=== PATIENT | male | born 1960 | race Caucasian/White ===

== ENCOUNTER 2020-05-22 01:19 | Outpatient (CLI) | payer BC, SELFPAY ==
[2020-05-22 20:51] LABS: SARS-CoV-2 RNA PCR Negative
== END 2020-05-22 01:20 | disposition home or self-care (01) ==
LOC: ANHCOVIDDT 01:20
PROVIDERS: PCP Family Medicine; Visit Provider Internal Medicine Gastroenterology
DX: Z01.812 Encounter for preprocedural laboratory examination (principal); Z20.828 Contact with and (suspected) exposure to other viral communicable diseases
CPT/HCPCS: 87635; C9803; U0003

== ENCOUNTER 2020-05-24 01:21 | Day surgery (SDC) | payer BC, SELFPAY ==
[2020-05-21 08:28] VITALS: BMI 24.1
[2020-05-24 08:01] VITALS: BP 148/86; PULSE 83; RESP 16; TEMP 36.6; O2SAT 99; BMI 23.8
--- NOTE | 2020-05-24 08:05 | P.PNAN_ITS ---
Anes - Initial Pre Proc Eval Procedure: Operation Date: 05/24/20 09:00 Proposed Procedures p Screening Colonoscopy - Emmanuel Smart DO Date/Time: 05/24/20 08:05 Surgeon: Emmanuel Smart DO Pre Op Diagnosis: Neoplasm Screening Patient Data Age: 59 Gender: M Height: 1.7 m Weight: 70 kg Allergies Allergy/AdvReac Type Severity Reaction Status Date / Time No Known Allergies Allergy Verified 05/21/20 08:27 Home Medications Medication Instructions Recorded Confirmed Type No Home Medications 04/17/20 05/24/20 History Patient hx anesthesia problems: none Family hx anesthesia problems: none [facility] Past Medical History Medical History (Updated 04/17/20 @ 09:09 by Marbella Preciado) Varicocele Surgical History Surgical History H/O hernia repair Epigastric hernia repair with suture closure at [facility] in [place]. 05/21/2017 S/P excision of varicocele Family History Family History Sibling Patient's brother is in good health Father Acute myocardial infarction, Onset Age: 68 Patient's father is , Onset Age: 68 Family history of cardiovascular disease, Onset Age: 68 Family history of coronary artery disease, Onset Age: 68 Mother Patient's mother is in good health Family history of kidney disease Other Malignant neoplasm of prostate Social History Social History Smoking status: Never smoker Second hand tobacco smoke exposure: No Alcohol intake: never Substance use: unknown Substance use type: does not use 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 [employer] Gender identity (if verbalized by the patient): Female Spiritual care concerns: No Anes - Eval Final PreProcedure Day of Procedure 05/24/20 08:05 Patient weight: normal Heart: regular rate and rhythm Lungs: clear to auscultation and normal air movement Airway: Mallampati scale class II Neurological: alert and oriented Last oral intake: >/= 8 hours ASA classification: I Emergent: no Anesthetic plan: proceed Anesthesia type and monitoring: general GIVS Informed Consent: The patient's anesthetic plan and its attendant risks and benefits were discussed with the patient/family/POA. Questions were solicited and answers provided to the satisfaction of the patient/family/POA.
[2020-05-24] MEDS: LACTATED RINGERS 1,000 ML 150 ML IV CONT (08:18)
--- NOTE | 2020-05-24 08:53 | PM.IMHP ---
H&P: HPI History of Present Illness Date/Time: 05/24/20 08:53 Chief complaint: Neoplasm Screening Narrative: Reason for visit is colonoscopy. This very pleasant gentleman seen in consultation request of the primary physician. Impression: Screening colonoscopy. Recommendation: Colonoscopy. History: Very pleasant gentleman is negative GI review systems. He is here for screening colonoscopy. Physical examination: General: very pleasant patient in no acute distress. HEENT: Head was normocephalic sclerae is clear mouth without masses neck was supple. Heart: Rate rhythm regular without S3 or S4. Lungs: CTA. Abdomen: Soft with no guarding or rigidity. Bowel sounds were active. Neurologic: Cranial nerves 2 through 12 intact. No focal defects. No clonus. Musculoskeletal system: Revealed no joint tenderness or swelling no muscle atrophy. Extremities: Reveal no significant edema. Skin: Warm and dry with normal turgor. Mental status: intact. Patient is alert and oriented. Review of Systems Review of Systems: All systems reviewed & are unremarkable except as noted in HPI and below PMFSH Past Medical History Medical History (Updated 04/17/20 @ 09:09 by Marbella Preciado) Varicocele Surgical History Surgical History H/O hernia repair Epigastric hernia repair with suture closure at [facility] in [place]. 05/21/2017 S/P excision of varicocele Family History Family History Sibling Patient's brother is in good health Father Acute myocardial infarction, Onset Age: 68 Patient's father is , Onset Age: 68 Family history of cardiovascular disease, Onset Age: 68 Family history of coronary artery disease, Onset Age: 68 Mother Patient's mother is in good health Family history of kidney disease Other Malignant neoplasm of prostate Social History Social History Smoking status: Never smoker Second hand tobacco smoke exposure: No Alcohol intake: never Substance use: unknown Substance use type: does not use 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
[2020-05-24 09:30] VITALS: BP 103/65; PULSE 78; RESP 27; O2SAT 97
[2020-05-24 09:40] VITALS: BP 101/31; PULSE 69; RESP 27; O2SAT 97
[2020-05-24 09:51] VITALS: BP 101/61; PULSE 66; RESP 21; O2SAT 97
[2020-05-24 10:01] VITALS: BP 109/73; PULSE 67; RESP 16; O2SAT 99
[2020-05-24 10:11] VITALS: BP 100/70; PULSE 70; RESP 16; O2SAT 99
== END 2020-05-24 10:20 | disposition home or self-care (01) ==
PROVIDERS: PCP Family Medicine; Visit Provider Internal Medicine Gastroenterology
PROC: 0DJD8ZZ Inspection of Lower Intestinal Tract, Via Natural or Artificial Opening Endoscopic (ICD-10-PCS; CPT 45378; principal; 2020-05-24 09:00)
DX: Z12.11 Encounter for screening for malignant neoplasm of colon (principal); D12.8 Benign neoplasm of rectum; K64.8 Other hemorrhoids
CPT/HCPCS: 45385; 88305; J2704; J7120

== ENCOUNTER 2020-05-30 14:21 | Outpatient (CLI) | payer BC, SELFPAY | END 2020-05-30 14:22 | disposition home or self-care (01) | PROVIDERS: PCP Family Medicine; Visit Provider Surgery | DX: K43.9 Ventral hernia without obstruction or gangrene (principal); Z01.818 Encounter for other preprocedural examination | CPT/HCPCS: 36415; 86850; 86900; 86901 ==

== ENCOUNTER 2020-06-04 02:17 | Outpatient (CLI) | payer BC, SELFPAY ==
[2020-06-04 21:22] LABS: SARS-CoV-2 RNA PCR Negative
== END 2020-06-04 02:18 | disposition home or self-care (01) ==
LOC: ANHCOVIDDT 02:21
PROVIDERS: PCP Family Medicine; Visit Provider Surgery
DX: Z01.818 Encounter for other preprocedural examination (principal); Z20.828 Contact with and (suspected) exposure to other viral communicable diseases
CPT/HCPCS: 87635; C9803; U0003

== ENCOUNTER 2020-06-07 01:11 | Day surgery (SDC) | payer BC, SELFPAY ==
[2020-05-28 14:39] VITALS: BMI 24.3
[2020-06-07] VITALS (8 sets, daily range): BP systolic 121–137; BP diastolic 70–84; PULSE 57–72; RESP 12–20; TEMP 36.6–37; O2SAT 97–100; BMI 24.1
--- NOTE | 2020-06-07 08:23 | P.PNAN_ITS ---
Anes - Initial Pre Proc Eval Procedure: Operation Date: 06/07/20 12:00 Proposed Procedures p Laparoscopic Recurrent Epigastric Hernia Repair - Johnson Ayala MD Date/Time: 06/07/20 08:23 Surgeon: Johnson Ayala MD Pre Op Diagnosis: Recurrent Ventral/Epigastric Hernia Patient Data Age: 59 Gender: M Height: 1.7 m Weight: 70.31 kg Allergies Allergy/AdvReac Type Severity Reaction Status Date / Time No Known Allergies Allergy Verified 06/07/20 10:11 Home Medications Medication Instructions Recorded Confirmed Type multivitamin 1 tablet PO DAILY 05/28/20 06/07/20 History Patient hx anesthesia problems: none Family hx anesthesia problems: none [facility] Past Medical History Medical History (Updated 06/07/20 @ 10:32 by Venkatesh Wellington MD) ELIDIA (obstructive sleep apnea) Rectal polyp Varicocele Ventral hernia without obstruction or gangrene Surgical History Surgical History H/O hernia repair Epigastric hernia repair with suture closure at [facility] in [place]. 05/21/2017 S/P excision of varicocele Family History Family History Sibling Patient's brother is in good health Father Acute myocardial infarction, Onset Age: 68 Patient's father is , Onset Age: 68 Family history of cardiovascular disease, Onset Age: 68 Family history of coronary artery disease, Onset Age: 68 Mother Patient's mother is in good health Family history of kidney disease Other Malignant neoplasm of prostate Social History Social History Smoking status: Never smoker Second hand tobacco smoke exposure: No Alcohol intake: never Substance use: unknown Substance use type: does not use 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 Gender identity (if verbalized by the patient): Female Spiritual care concerns: No Anes - Eval Final PreProcedure Day of Procedure 06/07/20 08:23 Patient weight: normal Heart: regular rate and rhythm Lungs: clear to auscultation and normal air movement Airway: Mallampati scale class II Neurological: alert and oriented Last oral intake: >/= 8 hours ASA classification: II Emergent: no Anesthetic plan: proceed Anesthesia type and monitoring: general ETT Informed Consent: The patient's anesthetic plan and its attendant risks and benefits were discussed with the patient/family/POA. Questions were solicited and answers provided to the satisfaction of the patient/family/POA.
[2020-06-07] MEDS: ACETAMINOPHEN 500 MG TABLET 1000 MG PO (10:30)
[2020-06-07] MEDS: KETOROLAC 15 MG/ML VIAL (*BKC) IV PUSH (10:31)
[2020-06-07] MEDS: LACTATED RINGERS 1,000 ML 30 ML IV CONT (10:38)
--- NOTE | 2020-06-07 11:06 | PM.HPGS ---
History of Present Illness History of Present Illness Consent: Risks, benefits, and alternatives a laparoscopic ventral incisional hernia repair have been discussed and questions answered. Patient agrees to proceed with procedure. Chief complaint: Recurrent Ventral/Epigastric Hernia Narrative: Bhavik Sharma is a 59 year old male presents with a abdominal bulge that he had repaired about 3 years with an open procedure. He had a epigastric hernia repair (suture closure) in 05/21/2017 at [facility]. He reports this started to bulge again about 3 months after surgery. He has never had to reduce this. He reports this bulge is larger than the bulge was prior to the first surgery. He denies bowel obstructions or urinary obstructions. He had a colonoscopy at the age of 49. and since his recent office visit with me more than a month ago he had a follow-up colonoscopy revealing only 1 polyp removed that was benign with Dr. Smart. He did not have any polyps on his first one. 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 He is overall healthy. He is now seen in surgical consultation at the request of Dr. Rivers. Review of Systems Constitutional: Constitutional: Reports no additional constitutional complaints, Reports fatigue and Denies malaise Eyes: Eyes: Denies change in vision and Denies loss of vision ENT: Reports Normal hearing present, Denies change in voice, Denies dizziness, Denies hoarseness and Denies sore throat Cardiovascular: Cardiovascular: Denies chest pain, Denies leg edema and Denies dyspnea Respiratory: Respiratory: Denies cough, Denies dyspnea and Denies wheezing Gastrointestinal: Gastrointestinal: Denies hematochezia, Denies change in bowel habits and Denies heartburn Genitourinary: Genitourinary: Denies urinary frequency and Denies urinary incontinence Neurologic: Reports Normal hearing present, Denies confusion, Denies dizziness, Denies loss of vision, Denies memory loss and Denies seizure-like activity Psychiatric: Psychiatric: Denies confusion, Denies depression and Denies memory loss Endocrine: Endocrine: Denies cold intolerance and Reports fatigue Hematologic/Lymphatic: Hematologic/Lymphatic: Denies easy bleeding and Denies easy bruising Allergic/Immunologic: Allergic/Immunologic: Denies wheezing PMFSH Past Medical History Medical History ELIDIA (obstructive sleep apnea) Rectal polyp Varicocele Ventral hernia without obstruction or gangrene Surgical History Surgical History H/O hernia repair Epigastric hernia repair with suture closure at [facility] in [place]. 05/21/2017 S/P excision of varicocele Family History Family History Sibling Patient's brother is in good health Father Acute myocardial infarction, Onset Age: 68 Patient's father is , Onset Age: 68 Family history of cardiovascular disease, Onset Age: 68 Family history of coronary artery disease, Onset Age: 68 Mother Patient's mother is in good health Family history of kidney disease Other Malignant neoplasm of prostate Social History Social History Smoking status: Never smoker Second hand tobacco smoke exposure: No Alcohol intake: never Substance use: unknown Substance use type: does not use 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 Gender identity (if verbalized by the patient): Female Spiritual care concerns: No Meds Home Medications and Allergies Home Medications Medication Instructions Recorded Confirmed Type multivitamin 1 tablet PO DAILY 05/28/20 06/07/20 History Allergies Allergy/AdvReac Type Severity Reaction Status Date / Time No Known Allergies Allergy Verified 06/07/20 10:11 Vital Signs Vital Signs - 24 hr 06/07/20 10:39
--- NOTE | 2020-06-07 12:04 | WPDHPUPDATE1 ---
History and Physical Update Update Date/Time: 06/07/20 12:04 History and Physical has been reviewed, including an updated exam of the patient. There are NO changes in the patient's condition. Risks, benefits, and alternatives have been discussed and questions answered. Patient agrees to proceed with procedure.
[2020-06-07] MEDS: ceFAZolin 2 GM/D5W 50 ML 2 GM/50 ML BAG IVPB (12:17)
--- NOTE | 2020-06-07 13:31 | PM.PROC ---
Procedure Note - Detailed Date of procedure: 06/07/20 Pre-op diagnosis: Recurrent Ventral/Epigastric Hernia Post-op diagnosis: same Procedure performed: Laparoscopic recurrent epigastric hernia repair with mesh Description of procedure: DESCRIPTION OF PROCEDURE: The patient was placed in the supine position on the operative table and after induction of adequate general endotracheal anesthesia by Christofer Anesthesia, the entire abdomen was prepped and draped in usual sterile fashion and the head placed slightly up. An Ioban drape was used to prevent contact of the mesh with the skin during this clean case. Following this, local anesthetic was placed and a spot selected about two fingerbreadths below the costal margin on the left and a small incision made after instilling local anesthetic using 0.25% Marcaine with epinephrine. Following this, a Veress needle technique using the water drop test was completed. Using 2 towel clips on the skin, I carefully elevated the skin and then passed the Veress needle into the abdomen and we could see that the saline droped through the Veress needle easily. CO2 gas was connected and the abdomen was insufflated to 14 mm Hg pressure after starting out at around 9. Following this, 0 degree 5 mm laparoscope was placed inside a 5 mm trocar, which was carefully twisted into the abdomen without difficulty, seeing an open pneumoperitoneum as we entered. Thus, the trocar was removed, the sleeve confirmed to be nicely within the abdomen, and we carefully inspected the abdomen. Careful inspection of the abdomen revealed no inguinal hernias. A small defect in the fascia under and slightly above the old scar in the epigastrium that was actually difficult to see initially because there was an omental adhesion stuck to its underside., but after placing a 12 mm port in the left lower quadrant under direct vision with the laparoscope, we could see up into an approximately 11 mm defect that had been measured then with an instrument with a known cm marker. There was no incarceration of any omentum or any other adhesions to the underside of the old scar. There was some preperitoneal fat from the going up into the area which might inhibit the tacks that I was planning to place through the mesh; therefore, this and approximately 4 cm of the falciform ligament cephalad to the area of the hernia was taken down with Bovie cautery. I used both a [place] to fulgurate several vessels in the falciform and a scissors to take this down. We had a little bleeding from this, and lost about 5 mL of blood. This was nicely cauterized and then moved out of the way. This was pre-peritoneal fat and it was removed from the abdomen and passed off the field but not sent as specimen. Following this, we carefully planned by measuring the defect. Our mesh, a circular 11 cm piece of Venta-lite piece of mesh was chosen, so that we would have 4.5 cm of overlap in all directions over the epigastric defect. Following this, the ventra-lite balloon hernia system mesh was rolled and this was inserted through the 12 mm port after rolling it to protect the absorbable covering on the downside of the mesh. An O Vicryl suture was placed through the blue system plastic loop that is used to extract the tubing for the balloon positioning system such that I could grab this and pull it up through the epigastric area with the suture Passer. I used the suture passer after making a small opening with an 11 blade knife after placing local anesthetic directly in the cente of the palpable fascial defect in the epigastric area. The suture passer was used to grasp this centering Vicryl stitch on the piece of mesh, and this was pulled up, centering it. Then and insofar inflated the balloon system which brought the mesh up against the anterior abdominal wall centering it nicely with the center of the 11 centimeter piece of mesh over the center of the epigatric area. Two rows of tacks using the
[2020-06-07] MEDS: fentaNYL CITRATE INJ (*CRX) 100 MCG/2 ML VIAL 25 MCG IV PUSH ×4 (14:33→14:54)
[2020-06-07] MEDS: oxyCODONE HCL (*CRX) 5 MG TAB IR PO (14:45)
== END 2020-06-07 15:40 | disposition home or self-care (01) ==
PROVIDERS: PCP Family Medicine; Visit Provider Surgery
PROC: (CPT 49656; principal; 2020-06-07 12:00)
DX: K43.2 Incisional hernia without obstruction or gangrene (principal); G47.33 Obstructive sleep apnea (adult) (pediatric)
CPT/HCPCS: 49656; A9270; C1781; J0690; J1100; J1885; J2250; J2370; J2405; J2704; J3010; J7030; J7120

== ENCOUNTER 2020-07-19 12:17 | Emergency (ER) | payer BC, SELFPAY ==
[2020-07-19] VITALS (13 sets, daily range): BP systolic 118–134; BP diastolic 77–87; PULSE 88–102; RESP 17–24; TEMP 36.4; O2SAT 93–97
--- NOTE | ~2020-07-19 | CT_ITS ---
EXAMINATION: CT brain wo con DATE: 07/19/2020 13:09 INDICATION: Seizure TECHNIQUE: Computed tomography (CT) of the head was performed without intravenous contrast. Sagittal and coronal reconstructions were performed. The mA was adjusted according to patient size. Iterative reconstruction technique was employed. The dose-length product was 605.33 mGy-cm. COMPARISON: None FINDINGS: No acute intracranial hemorrhage, acute infarction or abnormal extra axial fluid collection. Ventricl es are normal and symmetric. No mass/mass effect. Mild mucosal thickening the bilateral ethmoid sinus es. The orbits and mastoid air cells are normal. IMPRESSION: 1. Normal aging brain. No acute intracranial process. Reviewed, dictated and finalized at location A. SCAPING SUPERVISOR
--- NOTE | 2020-07-19 12:21 | ECG_ITS ---
Measurements Intervals [place] Rate: 92 P: 76 ME: 140 QRS: 58 QRSD: 96 T: 61 QT: 309 QTc: 384 Interpretive Statements SINUS RHYTHM BORDERLINE ST-T WAVE ABNORMALITY- INF/LAT LEADS BORDERLINE ECG Electronically Signed On 07-19-2020 16:34:44 PAINT MIXER HAND by Milind Vieira D.O.
[2020-07-19 12:29] LABS: Basophils Absolute Auto 0.1 K/mm3 (0.0-0.1); Basophils Percent Auto 0.8 % (0.2-1.2); Eosinophils Absolute Auto 0.2 K/mm3 (0-0.3); Hematocrit 45.8 % (42.0-52.0); Hemoglobin 16.2 g/dL (14.0-18.0); Immature Granulocyte Absolute 0.03 K/mm3 (0.00-0.031); Immature Granulocyte Percent A 0.4 % (0-0.5); Lymphocytes Percent Auto 27.5 % (18.3-44.2); Mean Corpuscular HGB Conc 35.4 g/dl (32-36); Mean Corpuscular Hemoglobin 33.1 pg (26-34); Mean Corpuscular Volume 93.5 fl (80-100); Mean Platelet Volume 10.2 fl (7.4-10.4); Monocytes Absolute Auto 0.8 K/mm3 (0.1-0.6); Monocytes Percent Auto 9.5 % (2.6-8.5); Neutrophils Absolute Auto 4.7 K/mm3 (1.3-6.7); Neutrophils Percent Auto 58.8 % (45.5-73.1); Platelet Count Result 223 k/mm3 (150-375); Red Cell Distribution Width 12.8 % (11.5-14.5)
[2020-07-19 12:30] LABS: Glucose Point of Care 106 (65-105)
[2020-07-19 12:41] LABS: Anion Gap 12 mmol/L (8-16); Blood Urea Nitrogen 28 mg/dL (9-20); Calcium 9.4 mg/dL (8.4-10.2); Carbon Dioxide 26 mmol/L (22-30); Chloride 101 mmol/L (98-107); Estimated CRCL calculation 59 ml/min; Estimated Glomerular Filt Rate > 60; Glucose 99 mg/dL (75-110); Potassium 3.8 mmol/L (3.4-5.0); Sodium 139 mmol/L (137-145)
--- NOTE | 2020-07-19 12:46 | PC.NURSE ---
called lab, harshad, added on EtOH 1368
--- NOTE | 2020-07-19 12:52 | ED.SEIZURE ---
HPI - Seizure General Chief Complaint: Seizure Stated Complaint: SEIZURE History of Present Illness HPI Narrative: Patient is a 59-year-old male who presents ER with seizure. heard him making sounds upstairs went to check on him and he was on the ground having a tonic-clonic seizure that was generalized. He then had blowing breath sounds afterwards and then was confused. He has since returned to his neurologic baseline. Patient reports history of seizures with last seizure 40 years ago. He has not been on medication for 40 years. Denies any change in routine or increased stress that may have provoked a seizure. Has no complaints at this time. Related Data Home Medications Medication Instructions Recorded Confirmed multivitamin 1 tablet PO DAILY 05/28/20 06/21/20 Allergies Allergy/AdvReac Type Severity Reaction Status Date / Time No Known Allergies Allergy Verified 06/21/20 09:30 Review of Systems Review of Systems: All systems reviewed & are unremarkable except as noted in HPI and below Constitutional: Constitutional: Denies chills, Denies fever(s) and Denies weakness ENT: Denies nasal congestion and Denies sore throat Respiratory: Respiratory: Denies cough and Denies dyspnea Gastrointestinal: Gastrointestinal: Denies nausea and Denies vomiting Neurologic: Denies syncope, Denies headache(s), Denies focal weakness and Denies numbness Comments: Seizure PMFSH Past Medical History Medical History (Updated 07/19/20 @ 14:36 by Nikolai Wilson MD) ELIDIA (obstructive sleep apnea) Rectal polyp Seizure Varicocele Ventral hernia without obstruction or gangrene Surgical History Surgical History H/O hernia repair Epigastric hernia repair with suture closure at [facility] in [place]. 05/21/2017 S/P excision of varicocele Family History Family History Sibling Patient's brother is in good health Father Acute myocardial infarction, Onset Age: 68 Patient's father is , Onset Age: 68 Family history of cardiovascular disease, Onset Age: 68 Family history of coronary artery disease, Onset Age: 68 Mother Patient's mother is in good health Family history of kidney disease Other Malignant neoplasm of prostate Social History Social History Smoking status: Never smoker Second hand tobacco smoke exposure: No Alcohol intake: never Substance use: unknown Substance use type: does not use 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 HEAD: Normocephalic, atraumatic. EYES: PERRLA and EOMI. ENT: Mucous membranes moist. No tongue laceration. CHEST: Clear to auscultation. No respiratory distress. HEART: Regular rate and rhythm. Normal peripheral pulses. ABDOMEN: Soft, nontender, nondistended, normal active bowel sounds. EXTREMITIES: Normal range of motion. No edema.. NEURO: No focal deficits. Alert and oriented x3. Course Course Emergency Course: Discussed case with Dr. Mckee. Will load with Keppra and start on 500mg bid. No driving, outpt EED, f/u in 1 month Vital Signs Vital signs: Vital Signs Temperature 97.5 F L 07/19/20 12:16 Pulse Rate 100 07/19/20 12:16 Respiratory Rate 17 07/19/20 12:16 Blood Pressure 134/79 07/19/20 12:16 Pulse Oximetry 97 07/19/20 12:16 Temperature 97.5 F L 07/19/20 12:16 Pulse Rate 93 07/19/20 13:45 Respiratory Rate 20 07/19/20 13:45 Blood Pressure 122/80 07/19/20 13:45 Pulse Oximetry 95 07/19/20 13:45 MDM - Seizure Lab Data Result diagrams: 07/19/20 12:24 07/19/20 12:24 Labs: Lab Resu
--- NOTE | 2020-07-19 13:25 | PC.NURSE ---
called lab about the EtOH (again) 1350
--- NOTE | 2020-07-19 13:36 | PC.NURSE ---
Pt attempting to void via urinal.
[2020-07-19 13:42] LABS: Ethanol < 10 mg/dL (<10)
[2020-07-19 13:58] LABS: Add Urine Microscopic? YES; Appearance Urine Clear (Clear); Bilirubin Urine Negative (Negative); Blood Urine Negative (Negative); Color Urine Yellow (Yellow); Glucose Urine UA Negative (Negative); Ketones Urine Negative (Negative); Leukocyte Esterase Ur Negative LEU/UL (Negative); Mucus Urine Rare /lpf; Nitrate Urine Negative (Negative); Protein Urine 1+ mg/dL (Negative); Specific Grav Ur 1.016 (1.001-1.035); Squamous Epithelial Cell Urine Rare /hpf (Few); Urobilinogen Urine Negative mg/dL (<2.0); WBC Urine 0-3 /hpf
[2020-07-19] MEDS: levETIRAcetam 1000MG/NACL100ML 1,000 MG/100 ML BAG 400 MG IVPB (13:58)
--- NOTE | 2020-07-19 13:58 | PC.NURSE ---
Lucas edouard. Explained need additional urine for testing. Pt given water po per ok Dr. Wilson.
[2020-07-19 15:03] LABS: Amphetamine Screen Urine Negative (Negative); Barbiturate Screen Urine Negative (Negative); Benzodiazepines Screen Urine Negative (Negative); Cannabinoid Screen Urine Negative (Negative); Cocaine Screen Urine Negative (Negative); Methadone Screen Urine Negative (Negative); Opiate Screen Urine Negative (Negative); Phencyclidine Screen Urine Negative (Negative)
== END 2020-07-19 15:15 | disposition home or self-care (01) ==
PROVIDERS: Emergency Provider Emergency Medicine; PCP Family Medicine
DX: R56.9 Unspecified convulsions (principal); G47.33 Obstructive sleep apnea (adult) (pediatric); Z87.19 Personal history of other diseases of the digestive system; R94.31 Abnormal electrocardiogram [ECG] [EKG]
CPT/HCPCS: 36415; 70450; 80048; 80307; 81001; 82948; 85025; 93005; 96365; 99284; J1953

== ENCOUNTER 2020-08-03 08:25 | Outpatient (CLI) | payer BC, SELFPAY ==
--- NOTE | 2020-08-06 12:29 | WPDNEUROLOGY ---
Neurology EEG Report General Information Date of Study: 08/03/20 TEST EEG DIAGNOSIS epilepsy CONDITION OF RECORDING awake drowsy and sleep EEG NUMBER [id number] CLINICAL HISTORY patient reported he has had a grand mal seizure about 2 weeks ago. He came to the emergency room and they started him on Keppra. He also reported that he has had 3 or more seizures when he was a teenager. EEG DESCRIPTION basic resting occipital frequency consists of well-organized low to medium voltage 8 to 9 hertz per 2nd alpha admixed with minimal amount of low-voltage 15 to 18 hertz per 2nd beta. during drowsiness low-voltage beta activity seen diffusely. Bilateral symmetrical sleep activity seen during brief periods of sleep. Hyperventilation not done. photic stimulation produced normal drive. Non paroxysmal. nonfocal. nonlateralizing. IMPRESSION normal eeg
== END 2020-08-03 08:26 | disposition home or self-care (01) ==
PROVIDERS: PCP Family Medicine; Visit Provider Emergency Medicine
DX: G40.909 Epilepsy, unspecified, not intractable, without status epilepticus (principal)
CPT/HCPCS: 95816

== ENCOUNTER → 2020-08-20 14:31 | Outpatient (CLI) | payer BC, SELFPAY ==
--- NOTE | ~2020-08-20 | MR_ITS ---
EXAMINATION: MR brain/brain stem wo con DATE: 08/20/2020 15:02 INDICATION: Seizure. TECHNIQUE: Magnetic resonance imaging (MRI) of the brain and brainstem was performed without intraven ous contrast. Sequences included sagittal and axial T1-weighted FSE, axial diffusion-weighted FS EPI, axial T2*-weighted GRE, axial T2-weighted FLAIR Propeller, and axial T2-weighted Propeller. Apparent diffusion coefficient (ADC) maps were created. COMPARISON: Head CT 07/19/2020 FINDINGS: There are scattered areas of nonspecific increased T2-weighted signal intensity in the cere bral white matter, which is within normal limits for the patient's age. There is no intracranial hemo rrhage, acute infarction, or abnormal intracranial mass lesion. The ventricles are normal in size. Th ere is mild mucosal thickening in the ethmoid sinuses. The orbits are normal. The mastoid air cells a re normal. IMPRESSION: 1. Normal aging brain. Reviewed, dictated and finalized at location A. SIT PROOF MACHINE OPERATOR IMPRESSION: 1. Normal aging brain.
--- NOTE | ~2020-08-20 | XR_ITS ---
EXAMINATION: XR shoulder RT min 2V DATE: 08/20/2020 15:12 INDICATION: Right shoulder pain. TECHNIQUE: 4 views of right shoulder were obtained. COMPARISON: None. FINDINGS: Bone alignment is normal. No fracture. There is a 6.0 cm sclerotic lesion in proximal right humerus. There is mild osteoarthritis of glenohumeral joint and acromioclavicular joint. IMPRESSION: 1. Sclerotic lesion in proximal right humerus. In the absence of known malignancy, this finding is li raúl an enchondroma or osteonecrosis. Reviewed, dictated and finalized at location A. EY CLEANER IMPRESSION: 1. Sclerotic lesion in proximal right humerus. In the absence of known malignan cy, this finding is likely an enchondroma or osteonecrosis.
== END ==
PROVIDERS: PCP Family Medicine; Visit Provider Psychiatry & Neurology Neurology
DX: R56.9 Unspecified convulsions (principal); M25.511 Pain in right shoulder
CPT/HCPCS: 70551; 73030

== ENCOUNTER → 2020-09-10 14:47 | Outpatient (CLI) | payer BC, SELFPAY ==
--- NOTE | ~2020-09-10 | MR_ITS ---
EXAMINATION: MR shoulder RT wo/w con DATE: 09/10/2020 15:47 INDICATION: Right shoulder pain and limited range of motion TECHNIQUE: Magnetic resonance imaging (MRI) of the right shoulder was performed . without and with 13 mL Multihance intravenous contrast. Sequences included axial, sagittal and coronal T1-weighted FSE a nd T2-weighted FS FSE, sagittal PD-weighted FSE, axial T1-weighted FS FSE and postcontrast axial, sag ittal and coronal T1-weighted FS FSE. COMPARISON: None. FINDINGS: Coracoacromial arch: The acromion undersurface is curved in morphology (type II). The coracoacromial ligament is normal. M ild acromioclavicular osteoarthritis. Rotator cuff: Mild supraspinatus and infraspinatus tendinopathy with partial-thickness bursal sided tear involving the supraspinatus and infraspinatus tendons. The torn portion of the tendon is medially retracted geeta roximately 3 cm from the footplate slightly medial to the level of the apex of the humeral head. The lateral, anterior and posterior tear margins are unable to be definitively located. The tear appears to involve up to 50% of the thickness of the tendon. The teres minor and subscapularis tendons are no rmal. There is muscular edema at the infraspinatus muscle belly without associated fatty atrophy. Biceps tendon, glenoid labrum and glenohumeral cartilage: Long head of the biceps tendon is normal. Glenoid labrum is normal. Glenohumeral cartilage is normal. Fluid: Physiologic amount of fluid in the glenohumeral joint and biceps tendon sheath. No loose osteochondra l bodies. Small amount of fluid in the subacromial/subdeltoid bursa consistent with mild bursitis. Bones: There is a large lesion in the proximal metaphyseal metadiaphyseal region of the right humerus with r ing and arc-like pattern of low signal intensity sclerosis is seen on prior radiographs with lobular regions of increased T2 and PD signal with mild peripheral enhancement with cluster of grape like geeta earance characteristic of chondroid lesions. The lesion measures 5.6 cm proximal to distal and fills the medullary space measuring up to 3.2 x 3.0 cm. No evident endosteal scalloping or extraosseous ext ension to suggest malignant transformation. Marrow signal is otherwise normal. No fracture. IMPRESSION: 1. Mild supraspinatus and infraspinatus tendinopathy with moderate sized poorly defined articular sánchez ed tear involving up to one half of the tendon thickness with significant medial retraction of the to rn portion of the tendon. Associated infraspinatus muscular edema suggests a relatively recent injury . 2. Large enchondroma in the proximal right humerus. 3. Mild subacromial/subdeltoid bursitis. Reviewed, dictated and finalized at location A. CONTROLLER IMPRESSION: 1. Mild supraspinatus and infraspinatus tendinopathy with moderate sized poorly defined articular sided tear involving up to one half of the tendon thickness with significant medial retraction of the torn portion of the tendon. Associate d infraspinatus muscular edema suggests a relatively recent injury. 2. Large enchondroma in the proximal right humerus. 3. Mild subacromial/subdeltoid bursitis.
[2020-09-10 15:09] LABS: Estimated Glomerular Filt Rate 52
== END ==
PROVIDERS: PCP Family Medicine; Visit Provider Family Medicine
DX: S43.421A Sprain of right rotator cuff capsule, initial encounter (principal); X58.XXXA Exposure to other specified factors, initial encounter; M75.51 Bursitis of right shoulder
CPT/HCPCS: 73223; A9577

== ENCOUNTER 2021-06-11 07:57 | Outpatient (CLI) | payer BC, SELFPAY ==
--- NOTE | 2021-06-30 18:23 | WPDSLEEPSTUD ---
Sleep Study Date of Study: 06/11/21 Ordering Provider: Selvin Infante APRN Interpreting Physician: Priyanka Montesinos MD Sleep Study Type: Split Polysomnogram Height: 1.73 m Weight: 68.039 kg Body Mass Index: 22.8 Neck Circumference (inches): 14.5 [place]: 12 Reason for Sleep Study Hypersomnia * Home sleep test 06/28/2018 with [facility] with an AHI of 12.9 Sleep History Bhavik Sharma is a 60 year old man with complaints of frequent loud snoring and witnessed apnea by his spouse and children. There is a family history with his father and brothers all having sleep apnea. He has had a home sleep test in the past in 2018 with an AHI of 12.9 however without a medical co-morbidity of hypertension or depression, he did not meet criteria to start PAP therapy. He occasionally awakens from sleep feeling short of breath, occasionally awakens at night with heartburn, belching or coughing. he occasionally has trouble sleeping with a cold and occasionally wakes up gasping for breath at night. He frequently has breathing problems at night observed by others. He occasionally sweats excessively at night and notices his heart pounding or beating irregularly at night. He rarely falls asleep during the day and rarely falls asleep involuntarily. He never falls asleep while driving. He rarely has loss of muscle tone with strong emotion. He occasionally has daytime difficulties due to excessive sleepiness. He rarely feels paralyzed on waking or falling asleep. He occasionally has vivid dreamlike scenes upon awakening or falling asleep. He does not feel afraid to go to sleep or have nightmares. He occasionally remembers his dreams. He frequently has racing thoughts. He does not feel sad or depressed. He rarely has anxiety. He occasionally has muscular tension. He rarely notices parts of his body jerking and he rarely kicks at night. He does not have crawling or aching feelings in his legs or any kind of leg pain at night. He does not have morning jaw pain. He does not grind his teeth during sleep. He rarely is bothered by pain during the day and rarely awakened by pain at night. He occasionally wakes up feeling stiff in the morning with sore achy muscles. He occasionally wakes up with pain in the neck and spine. He has memory and concentration problems, sexual problems and headaches. He takes antacids regularly. He sleeps on his right side due to shoulder pain with a rotator cuff repair in October 2020. He has nasal allergies in spring and fall. Normal bedtime is 10:00 p.m. falling asleep within 90 minutes, typically waking 4 times at night to use the bathroom. He is able to return to sleep quickly. He wakes the morning at 7:30 a.m.. His weekend schedule is the same. He estimates getting 7 hours of sleep at night. he does not take naps. He is usually drowsy in the morning for an hour. He feels better in the morning compared to other times of day. Habits: Never smoked tobacco. Caffeine 1 serving in day. No alcohol or recreational drugs. [facility] Past Medical History Medical History Encounter for other specified surgical aftercare Foot drop, right Groin strain Hematospermia HSV-1 (herpes simplex virus 1) infection Humerus lesion, right Incisional hernia Lumbar disc herniation with radiculopathy ELIDIA (obstructive sleep apnea) Rectal polyp RLQ abdominal pain Seizure Seizure Sexual dysfunction Varicocele Ventral hernia without obstruction or gangrene Surgical History Surgical History H/O hernia repair Epigastric hernia repair with suture closure at [facility] in [place]. 05/21/2017 History of ventral hernia repair Recurrent epigastric hernia S/P excision of varicocele Family History Family History Sibling Patient's brother is in good health Father Acute m
[2021-07-01 07:14] VITALS: BMI 22.8
== END 2021-06-12 07:39 | disposition home or self-care (01) ==
LOC: ANHCSM 07:58
PROVIDERS: PCP Family Medicine; Visit Provider Nurse Practitioner Family
DX: G47.10 Hypersomnia, unspecified (principal)
CPT/HCPCS: 95811

== ENCOUNTER → 2022-04-28 09:25 | Outpatient (CLI) | payer BC, SELFPAY ==
--- NOTE | ~2022-04-28 | CT_ITS ---
EXAMINATION: CT abdomen pelvis wo con DATE: 04/28/2022 09:43 INDICATION: Epigastric swelling TECHNIQUE: Computed tomography (CT) of the abdomen and pelvis was performed without intravenous contr ast. The dose-length product (DLP) was 370.78 mGy-cm. Automated exposure control and iterative recons truction technique were employed. COMPARISON: 03/06/2009 FINDINGS: The lung bases are clear. The heart size is normal. There is a small sliding hiatal hernia. The liver, spleen, pancreas, gallbladder, and adrenal glands are normal. Nonobstructing stones of th e kidneys measure up to 2 mm on the left. No stones are present in the ureters or bladder. There is n o hydronephrosis or hydroureter. No pathologically enlarged abdominal or pelvic lymph nodes are ident ified. There is no free intraperitoneal gas or evidence of bowel obstruction. A moderate volume of co lonic stool is present. There is a small area of increased attenuation in the anterior epigastric sof t tissues near the marked area of clinical concern. No definite umbilical hernia is identified. There is mild lumbar spondylosis. IMPRESSION: 1. Small area of increased attenuation in the anterior epigastric tissues near the marked area of cli nical concern which could reflect tiny recurrent hernia versus laparoscopic scarring from port site. Reviewed, dictated and finalized at location A. IMPRESSION: 1. Small area of increased attenuation in the anterior epigastric tissues near the marked area of clinical concern which could reflect tiny recurrent hernia v ersus laparoscopic scarring from port site.
== END ==
PROVIDERS: PCP Family Medicine; Visit Provider Surgery
DX: R10.13 Epigastric pain (principal)
CPT/HCPCS: 74176

== ENCOUNTER 2024-03-09 09:44 | Outpatient (CLI) | payer BC, SELFPAY ==
[2024-03-09 13:17] LABS: Basophils Percent Auto 0.9 % (0.2-1.2); Eosinophils Absolute Auto 0.2 K/mm3 (0-0.3); Eosinophils Percent Auto 3.7 % (0-4.4); Hemoglobin 14.6 g/dL (14.0-18.0); Immature Granulocyte Absolute 0.01 K/mm3 (0.00-0.031); Immature Granulocyte Percent A 0.2 % (0-0.5); Lymphocytes Absolute Auto 1.09 K/mm3 (0.9-3.2); Lymphocytes Percent Auto 23.7 % (18.3-44.2); Mean Corpuscular Hemoglobin 33.3 pg (26-34); Mean Corpuscular Volume 98.2 fl (80-100); Mean Platelet Volume 11.7 fl (7.4-10.4); Monocytes Absolute Auto 0.5 K/mm3 (0.1-0.6); Monocytes Percent Auto 11.3 % (2.6-8.5); Neutrophils Absolute Auto 2.8 K/mm3 (1.3-6.7); Neutrophils Percent Auto 60.2 % (45.5-73.1); Platelet Count Result 168 k/mm3 (150-375); Red Blood Count 4.38 M/mm3 (4.6-6.20); Red Cell Distribution Width 12.6 % (11.5-14.5); White Blood Count 4.6 K/mm3 (4.5-10.0)
[2024-03-09 13:40] LABS: Alanine Aminotransferase 23 U/L (6-50); Albumin Level 4.3 g/dL (3.5-5.1); Alkaline Phosphatase 66 U/L (38-126); Anion Gap 7 mmol/L (4-12); Aspartate Amino Transferase 74 U/L (17-59); Blood Urea Nitrogen 29 mg/dL (9-20); Calcium 9.1 mg/dL (8.4-10.2); Carbon Dioxide 33 mmol/L (22-30); Chloride 96 mmol/L (98-107); Cholesterol 124 mg/dL (0-200); Estimated Glomerular Filt Rate > 60; Glucose 86 mg/dL (65-110); HDL Direct 52 mg/dL; Potassium 4.1 mmol/L (3.4-5.0); Sodium 136 mmol/L (137-145); Triglycerides 52 mg/dL (<150)
[2024-03-09 13:50] LABS: LDL Cholesterol Direct 55 mg/dL
[2024-03-09 14:17] LABS: Prostate Specific Antigen 0.7 ng/mL (< OR = 4.0)
[2024-03-09 14:37] LABS: Vitamin D 25 Hydroxy 34.7 ng/mL
[2024-03-09 14:51] LABS: Thyroid Stimulating Hormone Reflex 0.958 uIU/mL (0.465-4.68)
[2024-03-11 10:18] LABS: Levetiracetam Keppra 9.2 mcg/mL (6.0-46.0)
[2024-03-14 12:47] LABS: Testosterone Total 333 ng/dL (250-1100)
[2024-03-14 16:48] LABS: Testosterone Free 30.7 pg/mL (46.0-224.0)
== END 2024-03-09 09:45 | disposition home or self-care (01) ==
PROVIDERS: PCP Family Medicine; Visit Provider Nurse Practitioner Family
DX: R53.83 Other fatigue (principal); N40.0 Benign prostatic hyperplasia without lower urinary tract symptoms; Z12.5 Encounter for screening for malignant neoplasm of prostate
CPT/HCPCS: 36415; 80053; 80061; 80177; 82306; 84153; 84402; 84403; 84443; 85025; G0103

== ENCOUNTER 2024-12-22 12:52 | Outpatient (CLI) | payer MEDICARE, SELFPAY ==
--- OUTSIDE RECORDS SUMMARY | 2024-12-22 13:22 | XMS_ITS | Encounter Summary ---
Author Organization [facility] Health Address [address] [address] Care Team Providers Care Outreach Team Member Name Role Phone Johnathon Rivers MD Primary Care Provider [phone] Elmo Mahajan MD Unavailable [phone] Encounter Details Date Type Department Care Team (Late st Contact Info) Description 11/03/2019 [facility] Unknown, Provider Social History Tobacco Use Types Packs/Day Years Used Date Smoking Tobacco: Never Smokeless Tobacco: Never Alcohol Use Standard Drinks/Week Comments No 0 (1 standard drink = 0.6 oz pur e alcohol) Sex and Gender Information Value Date Recorded Sex Assigned at Not on file Legal Sex Male 2:45 PM CDT Gender Identity Not on file Sexual Orientation Not on file 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
--- OUTSIDE RECORDS SUMMARY | 2024-12-22 13:22 | XMS_ITS | Clinical Summary ---
Author Organization [facility] [address] Address [address] [place] [id number] Care Team Providers Care Social Security Specialist Name Role Phone Johnathon Rivers MD Primary Care Provider [phone] Allergies No known active allergies Medications multivitamin tabletIndicatio ns:Vitamin Deficiency Prevention Take 1 tablet by mouth daily before breakfast Active levETIRAcetam (KEPPRA) 500 mg tabletIndicatio ns:seizures Take 1 tablet (500 mg total) by mouth 2 (two) times a day 1 Active tamsulosin (FLOMAX) 0.4 mg extended release capsule 3 Active testosterone cypionate, micro (testosterone cyp, micro, bulk,) 100 % powder 0 3 Active tadalafiL (CIALIS) 5 mg tablet 3 Active Pregnyl 10,000 unit injection DILUTE WITH 5ML PREGNYL SOLVENT INCLUDED IN BOX AND INJECT 25 UNITS SUB-Q TWICE WEEKLY 3 Active Active Problems Problem Noted Date Diagnosed Date ELIDIA (obstructive sleep apnea) 10/17/2021 Nonintractable epilepsy without status epileptic us 10/17/2021 Sensorineural hearing loss (SNHL) of both ears 0 09/27/2021 Left ear pain 09/27/2021 Complete tear of right rotator cuff 10/15/2020 Overview (10/15/2020): Added automatically from request for surgery [id number] Recurrent ventral hernia 04/04/2019 Surgical History Surgery Date Site/Laterality Comments VENTRAL HERNIA REPAIR 05/20/2017 - 06/18/2017 HERNIA REPAIR 07/20/2018 - 07/19/2019 ventral with mesh Medical History Medical History Date Comments Seizures (HCC) last 06/2020 Rotator cuff tear ELIDIA (obstructive sleep apnea) 10/17/2021 Family History Medical History Relation Name Comments Heart attack Father Anesthesia problems Neg Hx Hernia Neg Hx Relation Name Status Comments Father Mother Alive Social History Tobacco Use Types Packs/Day Years Used Date Smoking Tobacco: Never Smokeless Tobacco: Never Tobacco Cessation:Counseling Given: Not Answered Alcohol Use Standard Drinks/Week Comments Not Currently 0 (1 standard drink = 0.6 oz pur e alcohol) AUDIT-C Answer Date Recorded Q1: How often do you have a drink containing alc ohol? Never 10/15/2020 Average Number of Drinks Not on file 021 Q3: How often do you have si x or more drinks on one occasion? 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 file Not on file Not on file Obstetrics History Last Filed Vital Signs Vital Sign Reading Time Taken Comments Blood Pressure 131/84 06/05/2022 11:44 AM VALET ATTENDANT Pulse 88 06/05/2022 11:44 AM VALET ATTENDANT Temperature 36.6 C (97.8 F) 06/05/2022 11:44 AM VALET ATTENDANT Respiratory Rate 17 10/22/2020 11:27 AM CDT Oxygen Saturation 100% 06/05/2022 11:44 AM VALET ATTENDANT Inhaled Oxygen Concentration - - Weight 76.7 kg (169 lb) 06/05/2022 11:44 AM VALET ATTENDANT Height 170.2 cm (5' 7) 06/05/2022 11:44 AM VALET ATTENDANT Body Mass Index 26.47 06/05/2022 11:44 AM VALET ATTENDANT Plan of Treatment Health Maintenance Due Date Last Done Comments Colon Cancer Screening-Colonoscopy 1960 Depression Screening 1960 Hepatitis C Screening 1960 Prostate Cancer Screening-PSA 1959 Hepatitis B Screening 10/27/1977 Pneumococcal vaccine 65+ (1 of 1 - PCV) 10/27/2009 Fall Risk Assessment 10/22/2021 10/22/2020 Abdominal Aortic Aneurysm (A AA) Screen 10/27/2024 Well Visit 65+ 10/27/2024 Influenza Vaccine (Season Ended) 2025 05/11/2020, 04/17/2019, 06/17/2018 DTaP/Tdap/Td Vaccine (2 - Td or Tdap) 09/01/2027 Zoster Vaccine Completed 07/12/2020, 05/11/2020 Medical Devices Implanted Type Area Shift Supervisor Film Processing Device Identifier Shelf Expiration Date Model / Serial / Lot [employer] Ar-1927bct Corkscrew Suturetape 5.5mm 14.7mm Bioabsorbable Full Thread 1.3mm - [id number] Implanted:Qty: 1 on 10/22/2020 by Ethan Downs MD at [facility] Right: Shoulder [employer] 07/19/2022 AR-1927BCT / / [id number] [employer] Ar-1927bct Corkscrew Suturetape 5.5mm 14.7mm Bioabsorbable Full Thread 1.3mm - [id number] Implanted:Qty: 1 on 10/22/2020 by Ethan Downs MD at [facility] Right: Shoulder [employer] 07/19/2022 AR-1927BCT / / [id number] [employer] Ar-2324 Bcm Swivelock 4.75mm 24.5mm Self Punch Vent Shoulder [place] Suture - [id number] Implanted:Qty: 1 on 10/22/2020 by Ethan Downs MD at [facility] Right: Shoulder [employer] 04/18/2024 AR-2324BCM / / [id number] [employer] Ar-2324 Bcm Swivelock 4.75mm 24.5mm Self Punch Vent Shoulder [place] Suture - [id number] Implanted:Qty: 1 on 10/22/2020 by Ethan Downs MD at [facility] Right: Shoulder [employer] 04/18/2024 AR-2324BCM / / [id number] Insurance ANTHEM ACCESS CHOICE ANTHEM ACCESS CHOICE ANTHEM ACCESS CHOICE Care Teams Social Security Specialist Relationship Specialty Start Date End Date Johnathon Rivers MD PCP - General Family Medicine 04/04/19
--- OUTSIDE RECORDS SUMMARY | 2024-12-22 13:22 | XMS_ITS | Encounter Summary ---
Author Organization [facility] Health Address [address] [place] [address] Care Team Providers Care Tip Length Checker Name Role Phone Johnathon Rivers MD Primary Care Provider [phone] Elmo Mahajan MD Unavailable [phone] Encounter Details Date Type Department Care Team (Late st Contact Info) Description 09/29/2019 [facility] Unknown, [...] on filedocumented in this encounter Care Teams Tip Length Checker Relationship Specialty Start Date End Date Johnathon Rivers MD [address] [place] [phone] PCP - General Family Medicine 03/17/17 Elmo Mahajan MD [address] [place] [phone] General Surgery 07/22/17 documented as of this encounter
--- OUTSIDE RECORDS SUMMARY | 2024-12-22 13:22 | XMS_ITS | Clinical Summary ---
Author Organization [facility] [employer] Address [address] [facility] [place] [address] Care Team Providers Care Roofing Applicator Name Role Phone Johnathon Rivers MD Primary Care Provider [phone] Elmo Mahajan MD Unavailable [phone] Source Comments [facility] [employer],non-owned Affiliates and Associated Physician Practices is amultiple site organization consisting of ambulatory clinics and hospital sitesin [place], [place], [place] and [place]. This disclosure is being madepursuant to the Care Everywhere program and may not contain all information available regarding this patient. Last updated 18.[facility] [employer] Allergies No known active allergies Medications * Be aware that medications may not be up to date on this document. Alwaysverify current medications with the patient. VASCEPA 1 G capsule 2 7 Active CIALIS 20 MG tablet 11 7 Active multivitamin daily (THERAGRAN) tablet Take 1 tablet by mouth daily with food Active ibuprofen (MOTRIN) 200 MG tablet Take by mouth every 6 hours as needed for Pain Active acetaminophen (TYLENOL) 500 MG tablet Take 500 mg by mouth every 4 hours as needed for Fever or Pain Maximum allowable Acetaminophen amount = 4 Grams (4000 mg) / 24 hours. Active Active Problems Problem Noted Date Diagnosed Date Uncomplicated epigastric hernia 05/12/2017 Family History Medical History Relation Name Comments Anesthesia Reaction Neg Hx Relation Name Status Comments Father [...] No t on file Not on file Last Filed Vital Signs Vital Sign Reading Time Taken Comments Blood Pressure 134/72 01/26/2018 9:50 AM CDT Pulse 86 01/26/2018 9:50 AM CDT Temperature 36.4 C (97.5 F) 05/21/2017 10:36 AM CDT Respiratory Rate 22 01/26/2018 9:50 AM CDT Oxygen Saturation 97% 01/26/2018 9:50 AM CDT Inhaled Oxygen Concentration - - Weight 74.8 kg (165 lb) 09/19/2019 1:38 PM FERTILIZER PROCESSING SUPERVISOR Height 172.7 cm (5' 8) 09/19/2019 1:38 PM FERTILIZER PROCESSING SUPERVISOR Body Mass Index 25.09 09/19/2019 1:38 PM FERTILIZER PROCESSING SUPERVISOR Plan of Treatment Health Maintenance Due Date Last Done Comments COLOGUARD (AGES 45-75) - COL ON CA SCREENING 1959 COLON MONITORING 1959 COLONOSCOPY - COLON CA SCREENING 1959 CT COLONOGRAPHY - COLON CA SCREENING 1959 Colorectal Cancer Screening 1959 FIT - COLON CA SCREENING 1959 FLEX SIG - COLON CA SCREENING 1959 LIPID TESTING 1959 HIV SCREENING 10/27/1974 HEPATITIS C SCREENING 10/23/1977 DTAP/TDAP/TD VACCINES (1 - Tdap) 10/27/1978 PNEUMOCOCCAL VACCINE 50+ (1 of 1 - PCV) 10/27/2009 ZOSTER VACCINE (1 of 2) 10/27/2009 SCREENING FOR DIABETES 03/17/2017 COVID-19 VACCINE ( - 2023-2 5 season) 2024 DEPRESSION SCREENING 07/20/2024 INFLUENZA VACCINE (Season Ended) 2025 Respiratory Syncytial Virus (RSV) Vaccine Pt: or over 60 yrs (1 - 1-dose 75+ series) 10/27/2034 HEPATITIS B VACCINE Aged Out No longe r eligible based on patient's age to complete this topic HIB VACCINE Aged Out No longer eligi ble based on patient's age to complete this topic HPV VACCINE Aged Out No longer eligi ble based on patient's age to complete this topic MENINGOCOCCAL (Group B) VACC INE SHARED DECISION-MAKING Aged Out No longer eligibl e based on patient's age to complete this topic MENINGOCOCCAL GROUPS A/C/Y/W VACCINE Aged Out No longer eligible b ased on patient's age to complete this topic Insurance ANTHEM Care Teams Roofing Applicator Relationship Specialty Start Date End Date Johnathon Rivers MD [address] [place] [phone] PCP - General Family Medicine 03/17/17 Elmo Mahajan MD [address] [place] [id number] General Surgery 07/22/17
--- OUTSIDE RECORDS SUMMARY | 2024-12-22 13:22 | XMS_ITS | Referral Summary ---
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 Not on file Not on file Last Filed Vital Signs Vital Sign Reading Time Taken Comments Blood Pressure 131/84 06/05/2022 11:44 AM PAINTER Pulse 88 06/05/2022 11:44 AM PAINTER Temperature 36.6 C (97.8 F) 06/05/2022 11:44 AM PAINTER Respiratory Rate 17 10/22/2020 11:27 AM CDT Oxygen Saturation 100% 06/05/2022 11:44 AM PAINTER Inhaled Oxygen Concentration - - Weight 76.7 kg (169 lb) 06/05/2022 11:44 AM PAINTER Height 170.2 cm (5' 7) 06/05/2022 11:44 AM PAINTER Body Mass Index 26.47 06/05/2022 11:44 AM PAINTER Plan of Treatment Not on file Medical Devices Implanted Type Area Fur Remodeler Device Identifier Shelf Expiration Date Model / Serial / Lot [employer] Ar-1927bct Corkscrew Suturetape 5.5mm 14.7mm Bioabsorbable Full Thread 1.3mm - [id number] Implanted:Qty: 1 on 10/22/2020 by Ethan Downs MD at [facility] Right: Shoulder [employer] 07/19/2022 AR-1927BCT / / [id number] [employer] Ar-1927bct Corkscrew Suturetape 5.5mm 14.7mm Bioabsorbable Full Thread 1.3mm - [id number] Implanted:Qty: 1 on 10/22/2020 by Ethan Downs MD at [facility] [place] Right: Shoulder [employer] 07/19/2022 AR-1927BCT / / [id number] [employer] Ar-2324 Bcm Swivelock 4.75mm 24.5mm Self Punch Vent Shoulder [place] Suture - [id number] Implanted:Qty: 1 on 10/22/2020 by Ethan Downs MD at [facility] [place] Right: Shoulder [employer] 04/18/2024 AR-2324BCM / / [id number] [employer] Ar-2324 Bcm Swivelock 4.75mm 24.5mm Self Punch Vent Shoulder [place] Suture - [id number] Implanted:Qty: 1 on 10/22/2020 by Ethan Downs MD at [facility] [place] Right: Shoulder [employer] 04/18/2024 AR-2324BCM / / [id number] Insurance [employer] ACCESS CHOICE [employer] ACCESS CHOICE [facility] ACCESS CHOICE Care Teams Real Estate Broker Relationship Specialty Start Date End Date Johnathon Rivers MD PCP - General Family Medicine 04/04/19
--- OUTSIDE RECORDS SUMMARY | 2024-12-22 13:22 | XMS_ITS | Clinical Summary ---
Author Organization [facility] Address [address] [address] Phone Care Team Providers Care Traveling Inventory Associate Name Role Phone Johnathon Rivers MD Primary Care Provider [phone] Johnson Ayala MD Unavailable [phone] Allergies No known active allergies Medications levoFLOXacin (LEVAQUIN) 750 MG Tablet Take 750 mg by mouth daily. 07/16/2023 Active Tadalafil 5 MG Tablet 05/29/2023 Active levETIRAcetam (KEPPRA) 500 MG Tablet Take 750 mg by mouth 2 times daily. 06/24/2023 Active pimecrolimus (ELIDEL) 1 % Cream Apply. 11/18/2023 Active atorvastatin (LIPITOR) 10 MG Tablet Take 10 mg by mouth. Active aspirin 81 MG Chewable Tablet Take 81 mg by mouth daily. Active Active Problems No known active problems Family History Medical History Relation Name Comments Heart Attack Father Relation Name Status Comments Father Social History Tobacco Use Types Packs/Day Years Used Date Smoking Tobacco: Never Smokeless Tobacco: Never Tobacco Cessation:Counseling Given: Not Answered Alcohol Use Standard Drinks/Week Comments Never 0 (1 standard drink = 0.6 oz pur e alcohol) Sex and Gender Information Value Date Recorded Sex Assigned at Not on file Legal Sex Male 11:11 PM CDT Gender Identity Not on file Sexual Orientation Not on file Last Filed Vital Signs Vital Sign Reading Time Taken Comments Blood Pressure 118/76 07/26/2024 9:00 AM DRY MOP MAKER Pulse 73 07/26/2024 9:00 AM DRY MOP MAKER Temperature 36.8 C (98.2 F) 07/26/2024 9:00 AM DRY MOP MAKER Respiratory Rate 18 07/26/2024 9:00 AM DRY MOP MAKER Oxygen Saturation 98% 07/26/2024 9:00 AM DRY MOP MAKER Inhaled Oxygen Concentration - - Weight 74.4 kg (164 lb) 07/26/2024 9:00 AM DRY MOP MAKER Height 170.2 cm (5' 7) 07/26/2024 9:00 AM DRY MOP MAKER Body Mass Index 25.69 07/26/2024 9:00 AM DRY MOP MAKER Plan of Treatment Upcoming Encounters Date Type Department Care Team (Late st Contact Info) Description 07/25/2025 9:00 AM DRY MOP MAKER Office Visit [facility] [address] [address] Alexandre Oh MD [address] [place] [phone] Health Maintenance Due Date Last Done Comments Hepatitis C Virus (HCV) Screening 1960 Cologuard 10/27/2009 Immunochemical Fecal Occult Blood 10/27/2009 Pneumococcal Immunization (50+ years) (1 of 1 - PCV) 10/27/2009 PSA Discussion 10/27/2014 SARS-COV-2 Immunization ( season) 2024 04/30/2022, 12/08/2021, 05/24/2021, Additional history exists Influenza Immunization (Season Ended) 2025 06/09/2023, 04/30/2022, 04/10/2021, Additional history exists Colonoscopy 12/17/2028 12/18/2023, 05/24/2020 Colorectal Cancer Screening 12/17/2028 Respiratory Syncytial Virus (RSV) Immunization (Adult) (1 - 1-dose 75+ series) 10/27/2034 12/18/2023, 05/24/2020 DTaP/Tdap/Td Immunization Discontinued 09/01/2017 TdaP Immunization Completed 09/01/2017 Zoster Immunization Completed 07/12/2020, 0 Hepatitis B Immunization Aged Out No longer eligible based on patient's age to complete this topic Human Papillomavirus (HPV) Immunization Aged Out No longer eligible based on patient's age to complete this topic Meningococcal Immunization (ACWY) Aged Out No longer eligible based on patient's age to complete this topic Rotavirus Immunization Aged Out No lo nger eligible based on patient's age to complete this topic Procedures Procedure Name Priority Date/Time Associated Diagnosis Comments COLONOSCOPY Routine 05/24/2020 from Last 3 Months or Most Recently Relevant to Health Maintenance Results * COLONOSCOPY (05/24/2020) Emmanuel Smart DO PROCEDURE/MINOR SURGICAL ORDERA BLES Final Result from Last 3 Months or Most Recently Relevant to Health Maintenance [place] [place] [address] Care Teams Traveling Inventory Associate Relationship Specialty Start Date End Date Johnathon Rivers MD [address] [place] [address] [address] [place] [address] PCP - General Family Medicine 04/17/20 Johnson Ayala MD [address] [facility] [address] [address] General Surgery 04/17/20
--- OUTSIDE RECORDS SUMMARY | 2024-12-22 13:22 | XMS_ITS | Continuity of Care Document ---
Author Organization [facility] Address [address] [place] [address] Phone Care Team Providers Care Towel Folder Name Role Phone Administrative, Provider Unavailable Unavail able Allergies, Adverse Reactions, Alerts Substance Reaction Status Criticality No Known Allergies Active No Inform ation Medications Medication Instructions Dosage Effective Dates (start - stop) Status Comments levetiracetam 500 mg tablet - Active oxycodone 5 mg tablet - Acti ve oxybutynin chloride 5 mg tablet - Active zolpidem 5 mg tablet - Activ e nabumetone 750 mg tablet - A ctive scopolamine 1 mg over 3 days transdermal patch - Active Shingrix (PF) 50 mcg/0.5 mL intramuscular suspension, kit - Active hydrocodone 5 mg-acetaminophen 325 mg tablet - Active Procedures Procedure Date Medical Record Copy Medical Record Copy Per Page Affidavit Medical Record Copy Medical Record Copy Per Page Affidavit Xray Copy Xray Copy Xray Copy Office/outpatient visit,barbara, mod 2021 Medical Record Copy Medical Record Copy Per Page X-ray exam finger(s), minimum 2 views De Global/Postop followup visit X-ray exam finger(s), minimum 2 views No Global/Postop followup visit Office/outpatient visit,new, mod 2020 Mallet Finger Splint Advance Directives Directive Yes / No Effective Date File Name No Information Encounters Encounter Description Practice Location Reason(s) For Visit Diagnoses Date Provider Providers Copied on Encounter [facility], [address], [id number], tel:[phone] [facility] No Information 3 Administrati ve Provider. [address], [id number], [place]. tel:[phone] [facility], [address] [place] [address], [id number], [place] tel:[phone] [facility] No Information 3 Administrati ve Provider. [address], [id number], [place]. tel:[phone] [facility], [address] [place] [address], [id number], [place] tel:[phone] [facility] No Information 3 Administrati ve Provider. [address] [place] [address], [id number], [place]. tel:[phone] [facility], [address] [place] [address], [id number], [place] tel:[phone] [facility] No Information 3 Administrati ve Provider. [address] [place], [place], [id number], [place]. tel:[phone] [facility], [address] [place] [address], [id number], [place] tel:[phone] [facility] No Information 2 Administrati ve Provider. [address] [address], [place], [place], [id number], [place]. tel:[phone] Office/outpa tient visit,est, mod [facility], [address] [place] [address], [id number], [place] tel:[phone] [facility] Left hand (chief complaint) Paresthesia of skin 2 N[facility] [place]. [address], [id number], [place]. tel:[phone] [facility], [address] [place] [address], [id number], [place] tel:[phone] [facility] No Information 2 Administrati ve Provider. [address] [place] [address], [id number], [place]. tel:[phone] [facility], [address] [place] [address], [id number], [place] tel:[phone] [facility] Left hand (chief complaint) Nondisp fx of dist phalanx of l mid fngr, 7thDCrushing injury of left middle finger, subsequent encounterCrush ing injury of left index finger, subsequent encounter 1 Naseem [place]. [address] [facility], [address], [id number], [place]. tel:[phone] [facility], [address] [place] [address], [id number], [place] tel:[phone] [facility] Left hand (chief complaint) Nondisp fx of dist phalanx of l mid fngr, 7thDCrushing injury of left middle finger, subsequent encounterCrush ing injury of left index finger, subsequent encounter May- 1 Naseemjose [place]. [address] [facility], [address], [place], [place], [id number], [place]. tel:[phone] Office/outpa tient visit,new, mod [facility], [address] [facility] [place], [place], [id number], [place] tel:[phone] [facility] Left middle finger (chief complaint) Nondisplaced fracture of distal phalanx of left middle finger, initial encounter for closed fractureCrushi ng injury of left middle finger, initial encounter 1 Naseem Jenna. [address] [facility], [address], [place], [place], [id number], [place]. tel:[phone] Family History Family Member Type Diagnosis Age At Onset No Information Payers Payer name Insurance type Covered constitution party ID Authoriza tion(s) No Information Social History Type Description Quantity Date Captured Comments Sex Male Smoking Status No Information Chief Complaint And Reason For Visit No Information Reason For Referral Reason For Referral No Information Plan Of Treatment Date Type Action Status Referral Ordered: [facility] NCS LT arm Appointment date/timeframe: 08/23/2021 ordered Referral Ordered: X-ray exam finger(s), minimum 2 views LT middle ordered History Of Present Illness Encounter Date Complaint History Of Prese nt Illness Left hand Bhavik was last seen in the office 6 weeks ago on July 03, 2021. He is over 3 months out from a crush injury to the left index and middle fingers resulting in a distal phalanx fracture of the left middle finger on May 17, 2021. He presents today with left hand numbness and tingling. The paresthesias are primarily in the thumb, index finger, and middle finger. The paresthesias have been present for 3 months. He has pain and numbness that radiates into his arm. The paresthesias are intermittent, and they do not wake him at night. He describes fatigue in his left upper extremity. He presents to the office today for evaluation and treatment of his left hand numbness and tingling. Left kenrick Gutierres is 7 week s out from a crush injury to the left index and middle fingers resulting in a distal phalanx fracture of the left middle finger on May 17, 2021. He was last seen in the office 3 weeks ago on June 12, 2021. He has been weaning out of the tip protector splints. His pain is slowly improving. He describes mild tingling in the index and middle fingers. He returns for follow-up. Left hand Fahad is nearly 4 weeks out from a crush injury to the left index and middle fingers on May 17, 2021. He was last seen in the office 3 weeks ago on May 22, 2021. At that time he was given a short AlumaFoam tip protector splint for the left middle finger. He has been wearing the splint intermittently. His pain is improving. He returns for follow-up. Sixto Vásquez is seen in the office today as a new patient. He presents with a left middle finger injury. On May 17, 2021 he was in a hotel in [place]. He was standing in the elevator and the doors would not shut. He waived his hand in the doorway and the doors suddenly slammed shut on the tips of his left index finger, middle finger, and ring finger. The following day, May 18, 2021, he presented to a local urgent care for evaluation and treatment of his left middle finger injury. Left hand x-rays were completed and there is an acute nondisplaced fracture at the left middle finger distal phalanx. There is a well-healed oblique fracture at the head of the left middle finger proximal phalanx that extends into the shaft. He purchased an aluminum splint at [facility]. He presents for evaluation and treatment of his left middle finger injury. Functional Status Date Functional Assessmen t No Information Instructions Date Instruction Additional Infor mation No Information Assessments Type Assessment Date No Information Patient Care Teams Name Effective Dates (start - stop) Status Members No Information
== END 2024-12-22 12:53 | disposition home or self-care (01) ==
LOC: ANHAUDIO 12:52
PROVIDERS: PCP Family Medicine; Visit Provider Otolaryngology
DX: H90.42 Sensorineural hearing loss, unilateral, left ear, with unrestricted hearing on the contralateral side (principal)
CPT/HCPCS: 92557; 92567